=== PATIENT | male | born 1960 | race Caucasian/White ===

== ENCOUNTER 2019-11-27 00:13 | Emergency (ER) | payer SELFPAY ==
[~2019-11-27] VITALS: Ht 188 cm; Wt 90.0 kg
[2019-11-27 00:27] VITALS: BP 141/83
[2019-11-27] MEDS ORDERED: TETANUS, DIPHTHERIA, PERTUSSIS VAC/PF 0.5ML (>7YR OLD) IM ONE (03:00)
== END 2019-11-27 02:50 | disposition left against medical advice (07) ==
LOC: ER 00:13
DX: S00.01XA Abrasion of scalp, initial encounter (principal); S60.410A Abrasion of right index finger, initial encounter; V18.4XXA Pedal cycle driver injured in noncollision transport accident in traffic accident, initial encounter; Y93.55 Activity, bike riding; Y92.89 Other specified places as the place of occurrence of the external cause; F10.129 Alcohol abuse with intoxication, unspecified; Y90.9 Presence of alcohol in blood, level not specified
CPT/HCPCS: 99283